=== PATIENT | female | born 1985 | race Caucasian/White ===

== ENCOUNTER 2019-11-08 19:31 | Emergency (ER) | payer BC, OTHER ==
[~2019-11-08] VITALS: Ht 162.5 cm; Wt 74.6 kg
--- NOTE | 2019-11-08 20:45 | Diagnostic Imaging Report ---
INDICATION: Pain COMPARISON: None available TECHNIQUE: Four radiographs of the left hand dated 11/08/2019 FINDINGS: No acute fracture or dislocation. No destructive osseous process. Carpal alignment is well-maintained. No suspicious radiopaque foreign body. IMPRESSION: No acute osseous abnormality. Dictated by: Dictated on workstation # [id number]
[2019-11-08] MEDS ORDERED: IBUP-1780 PO (21:15)
--- NOTE | 2019-11-08 21:15 | ED Upper Extremity ---
General Chief Complaint: Upper Extremity Stated Complaint: LEFT THUMB INJURY History of Present Illness Date Seen by Provider: Nov 08, 2019 Time Seen by Provider: 20:20 Initial Comments The patient is a 34-year-old female who is otherwise healthy and right-hand dominant. She presents with concern for an injury to her left thumb while skiing in [place] earlier today. She fell down in the snow but isn't quite sure what she did to injure the thumb. She denies any pain or injury anywhere else on her body. No therapy prior to arrival. Thumb is mildly swollen on initial assessment. Allergies and Home Medications Patient Home Medication List Home Medication List Reviewed: Yes Review of Systems Constitutional: see HPI All Other Systems Reviewed Negative Unless Noted: Yes (Negative excepted noted.) Past Bzsmyjz-Ziavwt-Ywqevw Hx Past Med/Social Hx: Reviewed Nursing Past Med/Soc Hx Patient Social History Recent Foreign Travel: No Contact w/Someone Who Travel: No Family Medical History Reviewed Nursing Family Hx Physical Exam Vital Signs Capillary Refill : Height, Weight, BMI Height: '" Weight: lbs. oz. kg; BMI Method: General Appearance: no apparent distress This is a younger female appearing nontoxic and in no acute distress. Head is no cephalic and atraumatic. Neck is supple and nontender. Oropharynx is moist. Lungs are clear to auscultation at all stations. There is normal S1 and S2 without rubs or gallops and capillary refill is appropriate, less than 2 seconds globally. Abdomen is soft, nontender and nondistended. Skin is warm and dry without cyanosis, clubbing or edema. Psychiatrically, the patient does straights appropriate mood and affect and is alert. From a musculoskeletal standpoint, evaluation of the left upper extremity is remarkable for tenderness and mild swelling over the dorsal aspect of the left thumb. There is some mild associated anatomic snuffbox tenderness. There is no tenderness or pain with ranging of the left wrist or elbow or shoulder. The left upper extremity is neurovascularly intact distally. Progress/Results/Core Measures Results/Orders My Orders Orders - NILSON ASIF MD Hand 3 View Left (11/08/19 20:23) Progress Progress Note : Time: 21:12 Progress Note Plain films are negative. Given anatomic snuffbox tenderness, will apply thumb spica and will repeat for the patient for follow-up at [facility] in a week for repeat x-ray and further care. We'll prescribe ibuprofen. Rest, ice and elevation discussed with patient who understands and agrees. We will proceed with discharge. All questions are answered. Diagnostic Imaging Diagonstic Imaging: Xray Comments INDICATION: Pain COMPARISON: None available TECHNIQUE: Four radiographs of the left hand dated 11/08/2019 FINDINGS: No acute fracture or dislocation. No destructive osseous process. Carpal alignment is well-maintained. No suspicious radiopaque foreign body. IMPRESSION: No acute osseous abnormality. Departure Impression Primary Impression: Left thumb sprain Qualified Codes: S63.682A - Other sprain of left thumb, initial encounter Disposition: HOME, SELF-CARE Condition: Improved Departure-Patient Inst. Referrals: YUMIKO MCKINNEY MD Patient Instructions: Sprained Thumb Add. Discharge Instructions: We have applied a splint called a thumb spica and would like you to follow-up with the orthopedic doctor at [place] in 1 week for repeat x-rays and reevaluation. This is because you have tenderness in area of your hand call the anatomic snuff box which raises concern for a possible scaphoid fracture which we can't see on the initial x-ray. Take ibuprofen as needed for discomfort and return to the emergency department right away with worsened symptoms or other new concerns. Scripts Ibuprofen (Ibuprofen) 800 Mg Tablet 800 MG PO Q8H PRN for PAIN, #30 TAB 0 Refills Prov: NILSON ASIF MD 11/08/19 NILSON ASIF MD Nov 08, 2019 21:15
[2019-11-08 21:23] VITALS: BP 130/79
== END 2019-11-08 21:23 | disposition home or self-care (01) ==
LOC: ER FS 19:37
DX: S63.682A Other sprain of left thumb, initial encounter (principal); W00.9XXA Unspecified fall due to ice and snow, initial encounter
CPT/HCPCS: 73130

== ENCOUNTER 2021-05-09 11:25 | Emergency (ER) | payer BC, OTHER ==
[~2021-05-09] VITALS: Ht 160 cm; Wt 76.8 kg
[~2021-05-09 11:25] MED LIST: IBUP-1780 PO
--- NOTE | 2021-05-09 11:33 | ED Integumentary General ---
General Stated Complaint: WC LT FINGER LAC History of Present Illness Date Seen by Provider: May 09, 2021 Time Seen by Provider: 11:33 Initial Comments 35-year-old female presents with left index finger laceration. Patient was cutting lettuce at work where she lacerated her finger. She had a small tip of the skin off. Nonsuturable. She is unsure when her last tetanus was. She had no other injuries. Allergies and Home Medications Allergies Coded Allergies: No Known Drug Allergies (Unverified , 11/08/19) Home Medications Ibuprofen 800 Mg Tablet, 800 MG PO Q8H PRN for PAIN Prescribed by: NILSON ASIF on 11/08/192114 Patient Home Medication List Home Medication List Reviewed: Yes Review of Systems Review of Systems Constitutional: no symptoms reported EENTM: no symptoms reported Cardiovascular: no symptoms reported Gastrointestinal: no symptoms reported Musculoskeletal: no symptoms reported Skin: see HPI Past Skkrtgo-Zdhwcf-Vgjmyl Hx Past Medical History Surgeries: Yes Tubal Ligation Respiratory: No Cardiac: No Neurological: No Genitourinary: No Gastrointestinal: No Musculoskeletal: No Endocrine: No HEENT: No Cancer: No Psychosocial: No Integumentary: No Physical Exam Vital Signs Capillary Refill : General Appearance: WD/WN, no apparent distress Cardiovascular: normal peripheral pulses, regular rate, rhythm Respiratory: no respiratory distress, no accessory muscle use Gastrointestinal: No distended Extremities: normal range of motion Neurologic/Psychiatric: alert, normal mood/affect, oriented x 3 Skin: other (Small 2 mm laceration/skin avulsion that is nonsuturable on the left index finger) Progress/Results/Core Measures Results/Orders My Orders Orders - NEIL,BRUNILDA L DO Dipht,Pertuss(Acell),Tet Adult (Boostrix (05/09/21 11:45) Progress Progress Note : Progress Note Patient with a nonsuturable laceration/skin avulsion. Patient will given a tetanus shot, sterile dressing patient to keep wound clean with warm soapy water, covered while at work. Follow-up with primary care provider as needed Departure Impression Primary Impression: Laceration of left index finger w/o foreign body w/o damage to nail Qualified Codes: S61.211A - Laceration without foreign body of left index finger without damage to nail, initial encounter Disposition: 01 HOME, SELF-CARE Condition: Stable Departure-Patient Inst. Referrals: NO,LOCAL PHYSICIAN (PCP/Family) Primary Care Physician Patient Instructions: Wound Care ED Add. Discharge Instructions: Keep wound clean with warm soapy water You may use a thin layer of Vaseline 2-3 times daily over the wound BRUNILDA TREJO DO May 09, 2021 11:33
[2021-05-09 11:34] VITALS: BP 131/84
[2021-05-09] MEDS ORDERED: TETANUS,DIPTH,PERTUSS P/F (BOOSTRIX) 0.5 ML VIAL IM ONE (11:45)
== END 2021-05-09 12:00 | disposition home or self-care (01) ==
LOC: EDUNIT# 11:25 → ER FS 11:26
DX: S61.211A Laceration without foreign body of left index finger without damage to nail, initial encounter (principal); Z23 Encounter for immunization; W27.4XXA Contact with kitchen utensil, initial encounter; Y93.G1 Activity, food preparation and clean up
CPT/HCPCS: 90715

== ENCOUNTER 2021-07-27 18:42 | Emergency (ER) | payer OTHER ==
[~2021-07-27] VITALS: Ht 162.6 cm; Wt 72.6 kg
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
[2021-07-27] MEDS ORDERED: LIDOCAINE 1% INJ 20 ML 20 ML VIAL INJ ONE (19:00)
[2021-07-27 19:28] VITALS: BP 119/77
== END 2021-07-27 19:28 | disposition home or self-care (01) ==
LOC: EDUNIT# 18:42 → ER FS 18:43
DX: S91.012A Laceration without foreign body, left ankle, initial encounter (principal); W17.82XA Fall from (out of) grocery cart, initial encounter
CPT/HCPCS: 99282

== ENCOUNTER → 2022-07-26 | Outpatient (CLI) | payer SELFPAY ==
--- NOTE | 2022-07-26 13:07 | Diagnostic Imaging Report ---
INDICATION: Followup fracture. EXAMINATION: Left foot 07/26/2022 FINDINGS: 3 views of the foot. There are no priors available for comparison. There is a slightly displaced oblique fracture of the mid 5th metatarsal with diastases of approximately 3.3 mm. No surrounding callus is appreciated. The remaining osseous structures appear intact. There are no dislocations. IMPRESSION: 1. Displaced fracture of the 5th metatarsal without changes of callus formation. Dictated by: Dictated on workstation # [id number]
== END ==
LOC: RAD FS 11:48
PROVIDERS: ATTEND Nurse Practitioner
DX: S92.352A Displaced fracture of fifth metatarsal bone, left foot, initial encounter for closed fracture (principal); X58.XXXA Exposure to other specified factors, initial encounter
CPT/HCPCS: 73630

== ENCOUNTER → 2022-08-16 | Outpatient (CLI) | payer OTHER ==
--- NOTE | 2022-08-16 19:17 | Diagnostic Imaging Report ---
INDICATION: Left foot pain. Comparison with 1922. FINDINGS: Mildly displaced oblique fracture in the distal shaft of the 5th metatarsal is unchanged in position. There has been some early bony callus formation developed. Solid bony bridging has not developed as of yet. Fracture line is still quite visible. The remainder of the foot appears normal. IMPRESSION: 1. Mildly displaced fracture of the 5th metatarsal shaft shows continued callus formation. Dictated by: Dictated on workstation # [id number]
== END ==
LOC: RAD FS 11:34
PROVIDERS: ATTEND Nurse Practitioner
DX: S92.352D Displaced fracture of fifth metatarsal bone, left foot, subsequent encounter for fracture with routine healing (principal); X58.XXXD Exposure to other specified factors, subsequent encounter
CPT/HCPCS: 73630

== ENCOUNTER → 2022-09-27 | Outpatient (CLI) | payer OTHER ==
--- NOTE | 2022-09-27 16:40 | Diagnostic Imaging Report ---
EXAMINATION: Left foot radiographs, 3 views. COMPARISON: August 16, 2022. HISTORY: 37-year-old female, followup fifth metatarsal fracture. Left foot pain. FINDINGS: There is an obliquely oriented fracture of the fifth metatarsal extending from the level of the mid to distal diaphysis. There is interval partial bony bridging of the fracture. There is a persistent fracture line visible. 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 There is no identified radiopaque foreign body. There is a normal variant os peroneum. The joint spaces are well preserved. There is a small calcaneal heel spur. IMPRESSION: Interval partial bony bridging of the fifth metatarsal fracture with persistent visible fracture line. No change in fracture alignment. Dictated by: Dictated on workstation # [id number]
== END ==
LOC: RAD FS 11:45
PROVIDERS: ATTEND Nurse Practitioner
DX: S92.352D Displaced fracture of fifth metatarsal bone, left foot, subsequent encounter for fracture with routine healing (principal); X58.XXXD Exposure to other specified factors, subsequent encounter
CPT/HCPCS: 73630

== ENCOUNTER → 2022-11-15 | Outpatient (CLI) | payer OTHER ==
--- NOTE | 2022-11-15 12:13 | Diagnostic Imaging Report ---
EXAMINATION: Left foot radiographs, 3 views. COMPARISON: September 27, 2022. HISTORY: 37-year-old female, left fifth metatarsal fracture. Followup exam. FINDINGS: There is interval bridging and healing response at site of previously noted oblique displaced fracture of the fifth metatarsal base. There is a residual deformity. 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 There is a normal variant os perineum. There is a small calcaneal heel spur. There is no identified acute fracture. Joint spaces are well preserved. IMPRESSION: 1. Interval complete bony bridging of the prior fifth metatarsal fracture without residual fracture line. 2. Additional radiographic evaluation of the left foot is grossly unremarkable. Dictated by: Dictated on workstation # [id number]
== END ==
LOC: RAD FS 11:16
PROVIDERS: ATTEND Nurse Practitioner
DX: S92.352D Displaced fracture of fifth metatarsal bone, left foot, subsequent encounter for fracture with routine healing (principal); X58.XXXD Exposure to other specified factors, subsequent encounter
CPT/HCPCS: 73630